=== PATIENT | male | born 2000 | race Caucasian/White ===

== ENCOUNTER 2019-02-21 17:29 | Emergency (ER) | payer BC, MEDICAID ==
[~2019-02-21] VITALS: Ht 180.3 cm; Wt 86.0 kg
[2019-02-21 17:39] VITALS: BP 149/76
[2019-02-21] MEDS ORDERED: ACETAMINOPHEN 500 MG TABLET PO ONE (18:30)
[2019-02-21] MEDS ORDERED: ACETAMINOPHEN 500 MG TABLET ONE (18:32)
== END 2019-02-21 20:19 | disposition home or self-care (01) ==
LOC: ED 19:31
DX: S39.012A Strain of muscle, fascia and tendon of lower back, initial encounter (principal); S29.012A Strain of muscle and tendon of back wall of thorax, initial encounter; V49.09XA Driver injured in collision with other motor vehicles in nontraffic accident, initial encounter; Y93.89 Activity, other specified; Y92.89 Other specified places as the place of occurrence of the external cause; Y99.8 Other external cause status
CPT/HCPCS: 72072; 72110; 99283